=== PATIENT | male | born 1990 ===

== ENCOUNTER 2017-06-26 11:51 | Emergency (ER) | payer OTHER ==
[2017-06-26 11:58] VITALS: BP 124/76; PULSE 68; TEMP 97.8; O2SAT 97
[2017-06-26 11:59] VITALS: BMI 26.3
[2017-06-26 12:04] VITALS: RESP 18
--- NOTE | 2017-06-26 12:35 | ED PDOC ---
HPI: General Adult Time Seen by Provider: 06/26/17 12:13 Chief Complaint (Nursing): Foreign Body Chief Complaint (Provider): Foreign Body History Per: Patient History/Exam Limitations: no limitations Onset/Duration Of Symptoms: Hrs (morning prior to arrival) Additional Complaint(s): Gregorio Cotton is a 26 year old male presenting to the ED for an evaluation of left ear pain occurring since this morning. The patient states he was cleaning his ear with a thin wooden Q-tip when the tip of it broke off and remained lodged in his ear. He denies any ear pain. PMD: MD Nolan Past Medical History Reviewed: Historical Data, Nursing Documentation, Vital Signs Vital Signs: Last Vital Signs Temp 97.8 F 06/26/17 11:56 Pulse 68 06/26/17 11:56 Resp 18 06/26/17 12:02 BP 124/76 06/26/17 11:56 Pulse Ox 97 06/26/17 12:36 - Medical History PMH: No Chronic Diseases - Family History Family History: States: Unknown Family Hx - Social History Current smoker - smoking cessation education provided: No Ex-Smoker (has not smoked in the last 12 months): No Alcohol: Social Drugs: Denies - Allergies Allergies/Adverse Reactions: Allergies Allergy/AdvReac Type Severity Reaction Status Date / Time No Known Allergies Allergy Verified 06/26/17 12:02 Review of Systems ROS Statement: Except As Marked, All Systems Reviewed And Found Negative ENT: Negative for: Ear Pain Physical Exam - Reviewed Nursing Documentation Reviewed: Yes Vital Signs Reviewed: Yes - Physical Exam Appears: Positive for: Non-toxic, No Acute Distress Head Exam: Positive for: ATRAUMATIC, NORMOCEPHALIC Skin: Positive for: Normal Color, Warm, Dry ENT: Positive for: Normal ENT Inspection Neurologic/Psych: Positive for: Alert, Oriented - ECG O2 Sat by Pulse Oximetry: 97 (RA) Pulse Ox Interpretation: Normal Medical Decision Making Medical Decision Making: Time: 12:13 No foreign body present in left ear. Scribe Attestation: Documented by Xena Amaro, acting as a scribe for Flora Vasquez PA-C. Provider Scribe Attestation: All medical record entries made by the Scribe were at my direction and personally dictated by me. I have reviewed the chart and agree that the record accurately reflects my personal performance of the history, physical exam, medical decision making, and the department course for this patient. I have also personally directed, reviewed, and agree with the discharge instructions and disposition. Disposition - Clinical Impression Clinical Impression: Foreign body sensation in left ear canal - Disposition Disposition: Routine/Home Disposition Time: 12:10 Condition: GOOD Instructions: Ear Foreign Body (ED) Forms: [facility] ([place])
== END 2017-06-26 12:40 | disposition home or self-care (01) ==
LOC: H.ER 11:51
DX: H92.09 Otalgia, unspecified ear (principal)

== ENCOUNTER 2017-11-05 16:11 | Emergency (ER) | payer OTHER ==
[2017-11-05 16:12] VITALS: BMI 26.3
[2017-11-05 16:32] VITALS: BP 142/73; PULSE 78; RESP 18; TEMP 98; O2SAT 100
--- NOTE | 2017-11-05 18:21 | ED PDOC ---
HPI: General Adult Time Seen by Provider: 11/05/17 17:41 Chief Complaint (Nursing): Dizziness/Lightheaded Chief Complaint (Provider): Imbalanced History Per: Patient History/Exam Limitations: no limitations Current Symptoms Are (Timing): Still Present Additional Complaint(s): 27 year old male presents to the emergency department with a complaint of feeling imbalanced for the past week intermittently. Reports that after he eat a new sausage he never had, he began to feel tightness of the throat. Reports tightness lasted about 20 minutes and resolved on its own. Denies rash, chest pain, or shortness of breath. Past Medical History Reviewed: Historical Data, Nursing Documentation, Vital Signs Vital Signs: Last Vital Signs Temp 98.0 F 11/05/17 16:31 Pulse 78 11/05/17 16:31 Resp 18 11/05/17 16:31 BP 142/73 11/05/17 16:31 Pulse Ox 100 11/05/17 19:40 - Medical History PMH: No Chronic Diseases - Surgical History Surgical History: No Surg Hx - Family History Family History: States: Unknown Family Hx - Social History Current smoker - smoking cessation education provided: No Alcohol: None Drugs: Denies - Home Medications Home Medications: Ambulatory Orders Medication Instructions Recorded Meclizine [Meclizine*] 1 - 2 mg PO Q6 #30 tab 11/05/17 - Allergies Allergies/Adverse Reactions: Allergies Allergy/AdvReac Type Severity Reaction Status Date / Time No Known Allergies Allergy Verified 11/05/17 16:30 Review of Systems ROS Statement: Except As Marked, All Systems Reviewed And Found Negative (As per HPI, otherwise negative) Constitutional: Positive for: Other (Imbalanced) ENT: Positive for: Other (Throat tightness) Cardiovascular: Negative for: Chest Pain Respiratory: Negative for: Shortness of Breath Skin: Negative for: Rash Physical Exam - Reviewed Nursing Documentation Reviewed: Yes Vital Signs Reviewed: Yes - Physical Exam Appears: Positive for: No Acute Distress Head Exam: Positive for: NORMAL INSPECTION Skin: Positive for: Normal Color, Warm, Dry ENT: Positive for: Normal ENT Inspection. Negative for: Pharyngeal Erythema Cardiovascular/Chest: Positive for: Regular Rate, Rhythm. Negative for: Murmur Respiratory: Positive for: Normal Breath Sounds. Negative for: Accessory Muscle Use, Respiratory Distress Gastrointestinal/Abdominal: Positive for: Normal Exam, Soft. Negative for: Tenderness Back: Positive for: Normal Inspection. Negative for: L CVA Tenderness, R CVA Tenderness Extremity: Positive for: Normal ROM. Negative for: Pedal Edema Neurologic/Psych: Positive for: Alert, Oriented (x3) - ECG O2 Sat by Pulse Oximetry: 100 (RA) Pulse Ox Interpretation: Normal Medical Decision Making Medical Decision Making: Time: 1750 Initial impression: Initial plan: --Head CT --Reevaluation Time: 1843 --head CT FINDINGS: Brain: No intracranial hemorrhage. No mass. No definite edema. Ventricles: No hydrocephalus. Bones/joints: No acute fracture. Shallow right temporal fossa with mild deformity of mandibular condyle. Soft tissues: Unremarkable. Sinuses: Few maxillary retention cysts. Mastoid air cells: No mastoid effusion. Orbits: Unremarkable as visualized. IMPRESSION: 1. No definite acute intracranial abnormality. 2. Incidental/non-acute findings are described above Time: 1926 --Patient is medically stable for discharge with Rx for Meclizine. Clinical Impression: [facility] Scribe Attestation: Documented by Jess Handy, acting as a scribe for Gagan Escobedo PA-C Provider Scribe Attestation: All medical record entries made by the Scribe were at my direction and personally dictated by me. I have reviewed the chart and agree that the record accurately reflects my personal performance of the history, physical exam, medical decision making, and the department course for this patient. I have also personally directed, reviewed, and agree with the discharge instructions and disposition. Disposition - Clinical Impression Clinical Impression: [facility] - Patient ED Disposition Is Patient to be Admitted: No Counseled Patient/Family Regarding: Studies Performed, Diagnosis, Need For Followup, Rx Given - Disposition Disposition: Routine/Home Disposition Time: 18:44 Condition: STABLE Prescriptions: Meclizine [Meclizine*] 1 - 2 mg PO Q6 #30 tab Instructions: [facility] (ED) Forms: [facility] (Hungarian) Print Language: WELSH
--- NOTE | 2017-11-05 18:44 | CT ---
EXAM: CT Head Without Intravenous Contrast CLINICAL HISTORY: 27 years old, male; Signs and symptoms; Other: Mosher's dizziness shakiness; Patient HX: Mosher's dizziness shakiness. Non-trauma TECHNIQUE: Axial computed tomography images of the head/brain without intravenous contrast. All CT scans at this facility use one or more dose reduction techniques, viz.: automated exposure control; ma/kV adjustment per patient size (including targeted exams where dose is matched to indication; i.e. head); or iterative reconstruction technique. Coronal and sagittal reformatted images were created and reviewed. COMPARISON: No relevant prior studies available. FINDINGS: Brain: No intracranial hemorrhage. No mass. No definite edema. Ventricles: No hydrocephalus. Bones/joints: No acute fracture. Shallow right temporal fossa with mild deformity of mandibular condyle. Soft tissues: Unremarkable. Sinuses: Few maxillary retention cysts. Mastoid air cells: No mastoid effusion. Orbits: Unremarkable as visualized. IMPRESSION: 1. No definite acute intracranial abnormality. 2. Incidental/non-acute findings are described above.
== END 2017-11-05 19:42 | disposition home or self-care (01) ==
LOC: H.ER 16:11
DX: R42 Dizziness and giddiness (principal)